=== PATIENT | male | born 1970 | race Caucasian/White ===

== ENCOUNTER 2017-08-26 11:35 | Outpatient (CLI) | payer OTHER | END 2017-08-26 11:36 | disposition home or self-care (01) | LOC: BICRAD 11:35 | PROVIDERS: ATTEND Nurse Practitioner Family | DX: M27.9 Disease of jaws, unspecified (principal); S02.652A Fracture of angle of left mandible, initial encounter for closed fracture | CPT/HCPCS: 70110 ==